=== PATIENT | female | born 2000 | race Caucasian/White ===

== ENCOUNTER 2019-01-25 20:23 | Emergency (ER) | payer MEDICAID, OTHER ==
[~2019-01-25] VITALS: Ht 170.2 cm; Wt 105.3 kg
[2019-01-25 20:33] VITALS: BP 150/63
[2019-01-25] MEDS ORDERED: LIDOCAINE-MPF 1%, 5ML ONE (20:54)
[2019-01-25] MEDS ORDERED: LIDOCAINE-MPF 1%, 5ML INFIL ONE (21:00)
--- NOTE | 2019-01-25 21:44 | NUR ---
PT IN [facility] AWAITING FOR ERP. PT LIDOCAINE AT FOR PROVIDER.
[2019-01-25] MEDS ORDERED: BACITRACIN ZINC OINT 500U/GM, 0.9 GM ONE (22:05)
== END 2019-01-25 22:31 | disposition home or self-care (01) ==
LOC: ED 22:10
DX: L02.414 Cutaneous abscess of left upper limb (principal)
CPT/HCPCS: 10060; 99283